=== PATIENT | female | born 1980 | race Caucasian/White ===

== ENCOUNTER 2016-12-30 10:31 | Emergency (ER) | payer OTHER ==
[~2016-12-30] VITALS: Ht 167.6 cm; Wt 108.0 kg
[~2016-12-30 10:31] MED LIST: COL100 PO; FER300 PO; FERROUS SULFAT325 M2 PO; IBUPROFEN400 MG PO; MAC100 PO; MOTRIN600 MG PO
[2016-12-30 12:28] LABS: BASOPHIL % 1.5 % (0-2); PLATELET COUNT 352 x10^3mcL (130-400)
[2016-12-30 12:31] LABS: RED CELL DISTRIBUTION WIDTH 21.9 % (11.5-14.5)
[2016-12-30 12:36] LABS: CALCIUM 8.5 mg/dL (8.5-10.1); CARBON DIOXIDE 24.5 mmol/L (21-32); CHLORIDE SERUM 104 mmol/L (98-107); CREATININE SERUM 0.6 mg/dL (0.6-1.0); GFR1 > 60 mL/min; GLUCOSE SERUM 113 mg/dL (74-106); POTASSIUM SERUM 3.8 mmol/L (3.5-5.1); SODIUM SERUM 138 mmol/L (136-145)
[2016-12-30 12:42] LABS: ALBUMIN 3.5 g/dL (3.4-5.0); BILIRUBIN DIRECT 0.06 mg/dL (0.0-0.2); BILIRUBIN TOTAL 0.26 mg/dL (0.20-1.00); TOTAL PROTEIN, SERUM 7.3 g/dL (6.4-8.2)
[2016-12-30 13:16] LABS: rbc morphology (normal/abnorm) ABNORMAL (NORMAL)
[2016-12-30 14:02] VITALS: BP 154/96
== END 2016-12-30 14:02 | disposition home or self-care (01) ==
LOC: ED 10:31
PROVIDERS: Emergency Medicine
DX: D50.9 Iron deficiency anemia, unspecified (principal); Z88.8 Allergy status to other drugs, medicaments and biological substances

== ENCOUNTER 2018-12-01 13:17 | Emergency (ER) | payer OTHER ==
[~2018-12-01] VITALS: Ht 167.6 cm; Wt 103.4 kg
[2018-12-01 13:37] VITALS: Ht 167.6 cm; Wt 103.4 kg
[2018-12-01 14:43] VITALS: BP 127/91
== END 2018-12-01 14:43 | disposition home or self-care (01) ==
LOC: ED 13:17
DX: M62.830 Muscle spasm of back (principal); Z86.2 Personal history of diseases of the blood and blood-forming organs and certain disorders involving the immune mechanism; Z90.49 Acquired absence of other specified parts of digestive tract; Z98.51 Tubal ligation status; Z88.8 Allergy status to other drugs, medicaments and biological substances